=== PATIENT | female | born 1930 | race Asian ===

== ENCOUNTER → 2017-05-02 | Outpatient (CLI) | payer OTHER ==
[~2017-05-02] MED LIST: AMLO2.5T PO; CIPR500S4 PO; ISOS60TA4 PO; MULT1CAP32 PO; OMEP20 PO; VICOT
== END | disposition home or self-care (01) ==
LOC: RADPV 14:19
PROVIDERS: ATTEND Internal Medicine
DX: R19.5 Other fecal abnormalities (principal); M85.88 Other specified disorders of bone density and structure, other site; M41.86 Other forms of scoliosis, lumbar region; M47.816 Spondylosis without myelopathy or radiculopathy, lumbar region; Z90.49 Acquired absence of other specified parts of digestive tract
CPT/HCPCS: 74010